=== PATIENT | female | born 1985 | race Two or more races ===

== ENCOUNTER → 2019-01-14 | Emergency (ER) | payer OTHER ==
[~2019-01-14] VITALS: Ht 170.2 cm; Wt 127.0 kg
[~2019-01-14] MED LIST: CELEBREX200MG PO; IBUPROFEN800 MG PO; LAMICTAL5 MG; MEDROLPACK PO; PROZAC10 MG; SKELAXIN800 MG PO; [UNRECOGNIZED DRUG - OTHER]
== END | disposition home or self-care (01) ==
LOC: ER 19:44
DX: M94.0 Chondrocostal junction syndrome [Tietze] (principal); R07.89 Other chest pain

== ENCOUNTER 2021-04-09 17:30 | Emergency (ER) | payer OTHER ==
[~2021-04-09] VITALS: Ht 170.2 cm; Wt 113.4 kg
[2021-04-09] MEDS ORDERED: IPRAT-ALBUT 0.5-3 ML IH (21:50)
[2021-04-09] MEDS ORDERED: BENZONATATE200 M1 PO (21:50)
[2021-04-09] MEDS ORDERED: CLARITIN10 M1 PO (21:50)
== END 2021-04-09 23:04 | disposition home or self-care (01) ==
LOC: ER 17:30
DX: J40 Bronchitis, not specified as acute or chronic (principal); B34.9 Viral infection, unspecified; Z11.52 Encounter for screening for COVID-19

== ENCOUNTER → 2021-12-19 | Emergency (ER) | payer OTHER ==
[~2021-12-19] VITALS: Ht 170.2 cm; Wt 122.5 kg
[~2021-12-19] MED LIST changes: +BENZONATATE200 M1 PO; +CLARITIN10 M1 PO; +IPRAT-ALBUT 0.5-3 ML IH
== END | disposition home or self-care (01) ==
LOC: ER 17:51
DX: K52.9 Noninfective gastroenteritis and colitis, unspecified (principal)

== ENCOUNTER 2023-08-04 00:55 | Inpatient (IN) | payer OTHER ==
[~2023-08-04] VITALS: Ht 170.2 cm; Wt 121.6 kg
[2023-08-04] MEDS ORDERED: RESTORIL7.5 MG PO (01:13)
[2023-08-04 02:11] LABS: HEMATOCRIT 41.1 % (36.0-45.00); HEMOGLOBIN 14.3 g/dL (12.0-15.00); MEAN CELL VOLUME 85.8 fL (80.00-100.00); MEAN CORPUSCULAR HEMOGLOBIN 29.8 pg (27.00-32.0); MEAN CORPUSCULAR HGB CONC 34.7 g/dl (32.0-36.0); PLATELET COUNT 268 K/uL (150-450); RED BLOOD COUNT 4.79 M/uL (4.00-6.00); RED CELL DISTRIBUTION WIDTH 13.2 % (11.5-14.5)
[2023-08-04 02:11] LABS: URINE APPEARANCE Cloudy; URINE BILIRRUBIN Negative (NEGATIVE); URINE BLOOD Negative; URINE COLOR Yellow; URINE GLUCOSE Negative (NEGATIVE); URINE LEUKOCYTE Trace; URINE NITRATE Negative; URINE PROTEIN Trace (NEGATIVE)
[2023-08-04 02:12] LABS: URINE BACTERIA 283.4 uL (0.0-1933); URINE EPITHELIAL CELLS 43.7 uL (0.0-38.8); URINE RBC 22.7 uL (0.0-20.8); URINE WBC 24.4 uL (0.0-23.2)
[2023-08-04 03:18] LABS: INR 1.02; PARTIAL THROMBOPLASTIN TIME 27.4 SECONDS (22.0-34.0); PROTHROMBIN TIME 10.7 SECONDS (9.0-11.5)
[2023-08-04 04:00] LABS: ALBUMIN 3.7 gm/dL (3.4-5.0); BILIRUBIN TOTAL 0.42 mg/dL (0.3-1.2); BILIRUBIN,CONJUGATED 0.15 mg/dL (0.0-0.2); BILIRUBIN,UNCONJUGATED 0.27 mg/dL (0.0-0.6); CALCIUM 9.2 mg/dL (8.5-10.1); CREATININE SERUM 0.95 mg/dL (0.55-1.02); GFR 65.49; GLOBULINA 4.5 G/DL (2.4-3.5); POTASSIUM 4.77 mEq/L (3.5-5.1); TOTAL PROTEIN 8.2 gm/dL (6.4-8.2)
== END 2023-08-07 14:55 | disposition home or self-care (01) | DRG 418 ==
LOC: ER 00:55 → MEDI 18:29
PROVIDERS: General Practice; Surgery; ADMIT Internal Medicine; ATTEND Internal Medicine
PROC: 4A1BXSH Monitoring of Gastrointestinal Vascular Perfusion using Indocyanine Green Dye, External Approach (ICD-10-PCS; 2023-08-05)
PROC: 0FT44ZZ Resection of Gallbladder, Percutaneous Endoscopic Approach (ICD-10-PCS; principal; 2023-08-05 07:15)
DX: K80.00 Calculus of gallbladder with acute cholecystitis without obstruction (principal); F31.81 Bipolar II disorder; K52.89 Other specified noninfective gastroenteritis and colitis; Z20.822 Contact with and (suspected) exposure to COVID-19

== ENCOUNTER 2025-07-29 16:46 | Emergency (ER) | payer OTHER ==
[~2025-07-29] VITALS: Ht 170.2 cm; Wt 97.5 kg
[~2025-07-29 16:46] MED LIST changes: +RESTORIL7.5 MG PO
[2025-07-29] MEDS ORDERED: DEXAMETHASONE SODIUM PHOSPHATE 4 MG/ML VIAL IM STA (18:01)
[2025-07-29] MEDS ORDERED: ACETAMINOPHEN 500 MG GEL..CAP PO STA (18:02)
[2025-07-29] MEDS ORDERED: DIPHENHYDRAMINE HCL 50 MG/ML VIAL 1ML IM STA (18:02)
[2025-07-29] MEDS ORDERED: ACETAMINOPHEN 500 MG GEL..CAP PO ONE (18:22)
[2025-07-29] MEDS ORDERED: DEXAMETHASONE SODIUM PHOSPHATE 4 MG/ML VIAL ONE (18:22)
[2025-07-29] MEDS ORDERED: DIPHENHYDRAMINE HCL 50 MG/ML VIAL 1ML ONE (18:22)
[2025-07-29 18:51] LABS: BASO % 0.5 % (0.1-1.2); EOS # 0.01 (0.04-0.54); EOS % 0.1 % (0.7-7.0); LYMPH # 1.73 (1.18-3.74); LYMPH % 23.1 % (19.3-53.1); MEAN PLATELET VOLUME 11.40 fl (9.4-12.4); MONO # 0.33 (0.24-0.82); MONO % 4.4 % (4.7-12.5); NEUT # 5.35 (1.56-6.13); NEUT % 71.6 % (34.0-71.1); RED CELL DISTRIBUTION WIDTH 12.7 % (11.6-14.4)
[2025-07-29 19:53] LABS: BUN CREA RATIO 18.0 (7.0-25.0); CREATININE SERUM 0.73 mg/dL (0.55-1.02); GFR 87.85; GLUCOSE FASTING 144.0 mg/dL (65-100); OSMOLALITY SERUM 282.0 MOSM/KG (275-295)
== END 2025-07-29 22:09 | disposition home or self-care (01) ==
LOC: ER 16:46
PROVIDERS: General Practice
DX: R51.9 Headache, unspecified (principal); F31.89 Other bipolar disorder

== ENCOUNTER → 2025-10-27 | Emergency (ER) | payer OTHER | END | disposition left against medical advice (07) | LOC: ER 17:49 | DX: Z53.21 Procedure and treatment not carried out due to patient leaving prior to being seen by health care provider (principal) ==